=== PATIENT | female | born 1965 | race Caucasian/White ===

== ENCOUNTER 2020-02-27 16:27 | Outpatient (CLI) | payer OTHER | END 2020-02-27 16:30 | disposition home or self-care (01) | LOC: LAB 16:27 | PROVIDERS: ATTEND Physical Medicine & Rehabilitation | DX: Z20.828 Contact with and (suspected) exposure to other viral communicable diseases (principal); Z11.59 Encounter for screening for other viral diseases ==

== ENCOUNTER 2020-08-14 10:20 | Outpatient (CLI) | payer OTHER | END 2020-08-14 10:22 | disposition home or self-care (01) | LOC: RAD 10:20 | PROVIDERS: ATTEND Physical Medicine & Rehabilitation | DX: M54.5 Low back pain (principal) ==

== ENCOUNTER 2021-03-22 07:40 | Outpatient (CLI) | payer OTHER | END 2021-03-22 07:48 | disposition home or self-care (01) | LOC: RAD 07:40 | PROVIDERS: ATTEND Physical Medicine & Rehabilitation | DX: M54.2 Cervicalgia (principal); M54.6 Pain in thoracic spine ==

== ENCOUNTER 2021-04-12 15:00 | Outpatient (CLI) | payer OTHER | END 2021-04-12 15:30 | disposition home or self-care (01) | LOC: PPH VACUNA 15:00 | PROVIDERS: ATTEND Emergency Medicine Pediatric Emergency Medicine | DX: Z23 Encounter for immunization (principal) ==